=== PATIENT | male | born 1960 | race Caucasian/White ===

== ENCOUNTER 2017-08-20 06:15 | Emergency (ER) | payer OTHER ==
[~2017-08-20] VITALS: Ht 170.2 cm; Wt 94.3 kg
[2017-08-20] MEDS ORDERED: CLINDAMYCIN PHOS 600 MG/ 4 ML VIAL IM ONE (07:00)
[2017-08-20] MEDS ORDERED: CLINDAMYCIN PHOS 300MG/2ML VIAL ONE (07:02)
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
== END 2017-08-20 07:48 | disposition home or self-care (01) ==
LOC: ER 06:15
DX: L03.113 Cellulitis of right upper limb (principal); M25.531 Pain in right wrist
CPT/HCPCS: 99283

== ENCOUNTER → 2017-11-27 | Outpatient (CLI) | payer OTHER ==
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
== END ==
LOC: RAD 11:07
PROVIDERS: ATTEND Family Medicine
DX: M54.2 Cervicalgia (principal); M54.6 Pain in thoracic spine; M54.5 Low back pain
CPT/HCPCS: 72050; 72072; 72110